=== PATIENT | female | born 1965 | race Caucasian/White ===

== ENCOUNTER 2023-04-25 19:04 | Emergency (ER) | payer MEDICARE, OTHER ==
[2023-04-25] MEDS ORDERED: Ketorolac 30 MG/ML SDV IM STA (20:03)
== END 2023-04-25 21:00 | disposition home or self-care (01) ==
LOC: FB.ED 19:04
DX: S93.402A Sprain of unspecified ligament of left ankle, initial encounter (principal); Z88.0 Allergy status to penicillin; Z91.018 Allergy to other foods; X50.1XXA Overexertion from prolonged static or awkward postures, initial encounter
CPT/HCPCS: 73610; 96372; 99283; J1885

== ENCOUNTER 2023-05-20 13:36 | Emergency (ER) | payer MEDICARE ==
[2023-05-20] MEDS ORDERED: tiZANidine 4 MG Tab PO STA (14:54)
[2023-05-20] MEDS ORDERED: Morphine 4 MG/ML VIAL IM ONE (14:57)
[2023-05-20 14:58] LABS: APPEARANCE,URINE CLEAR (CLEAR); BACTERIA,URINE RARE (NS); BILIRUBIN,URINE NEGATIVE (NEGATIVE); COLOR,URINE YELLOW (YELLOW); EPITHELIAL CELLS,URINE OCCASIONAL; GLUCOSE,URINE >1000 mg/dL (NORMAL); KETONES,URINE NEGATIVE (NEGATIVE); LEUKOCYTE ESTERASE,URINE LARGE (NEGATIVE); NITRITE,URINE NEGATIVE (NEGATIVE); OCCULT BLOOD,URINE NEGATIVE (NEGATIVE); PROTEIN,URINE NEGATIVE (NEGATIVE); RBC,URINE 0-5 (0-5); UROBILINOGEN,URINE NORMAL (NEGATIVE); YEAST,URINE MODERATE (NS)
== END 2023-05-20 16:45 | disposition home or self-care (01) ==
LOC: FB.ED 13:36
DX: G89.29 Other chronic pain (principal); M54.50 Low back pain, unspecified; M54.10 Radiculopathy, site unspecified; N39.0 Urinary tract infection, site not specified; Z91.018 Allergy to other foods; Z88.0 Allergy status to penicillin
CPT/HCPCS: 74176; 81001; 87086; 96372; 99284; A9270; J2270

== ENCOUNTER 2023-08-19 21:54 | Emergency (ER) | payer MEDICARE ==
[2023-08-19] MEDS ORDERED: Ketorolac 30 MG/ML SDV IVPUSH ONE (23:31)
[2023-08-19 23:39] LABS: APPEARANCE,URINE CLOUDY (CLEAR); BACTERIA,URINE MODERATE (NS); BILIRUBIN,URINE NEGATIVE (NEGATIVE); COLOR,URINE YELLOW (YELLOW); GLUCOSE,URINE >1000 mg/dL (NORMAL); KETONES,URINE NEGATIVE (NEGATIVE); LEUKOCYTE ESTERASE,URINE MODERATE (NEGATIVE); NITRITE,URINE POSITIVE (NEGATIVE); OCCULT BLOOD,URINE LARGE (NEGATIVE); PROTEIN,URINE NEGATIVE (NEGATIVE); SQUAMOUS EPITHELIAL CELLS,UR OCCASIONAL (NS,R,O); UROBILINOGEN,URINE NORMAL (NEGATIVE)
[2023-08-19] MEDS ORDERED: Cefdinir 300 MG Cap PO ONE (23:46)
[2023-08-19] MEDS ORDERED: Ketorolac 30 MG/ML SDV IM ONE (23:52)
== END 2023-08-20 00:40 | disposition home or self-care (01) ==
LOC: FB.ED 21:54
DX: M25.561 Pain in right knee (principal); N39.0 Urinary tract infection, site not specified; M17.11 Unilateral primary osteoarthritis, right knee; I10 Essential (primary) hypertension; E11.9 Type 2 diabetes mellitus without complications; E66.9 Obesity, unspecified; Z68.42 Body mass index [BMI] 45.0-49.9, adult; Z88.0 Allergy status to penicillin; Z91.018 Allergy to other foods
CPT/HCPCS: 81001; 87086; 87088; 87186; 96372; 99283; A9270-GY; J1885